=== PATIENT | female | born 1980 | race Two or more races ===

== ENCOUNTER 2025-02-20 08:08 | Outpatient (RCR) | payer MEDICAID, SELFPAY | END 2025-03-15 23:59 | disposition home or self-care (01) | LOC: SCTC 08:08 | PROVIDERS: PCP Nurse Practitioner Family; Referring Provider Nurse Practitioner Family; Visit Provider Nurse Practitioner Family | DX: D75.839 Thrombocytosis, unspecified (principal); Z86.16 Personal history of COVID-19; R53.83 Other fatigue; R19.5 Other fecal abnormalities; Z87.891 Personal history of nicotine dependence | CPT/HCPCS: 99213; G0463 ==

== ENCOUNTER 2025-03-20 09:52 | Outpatient (RCR) | payer MEDICAID, SELFPAY | END 2025-04-14 23:59 | disposition home or self-care (01) | LOC: SCTC 09:52 | PROVIDERS: PCP Nurse Practitioner Family; Referring Provider Nurse Practitioner Family; Visit Provider Nurse Practitioner Family | DX: D75.839 Thrombocytosis, unspecified (principal); R53.83 Other fatigue; R19.5 Other fecal abnormalities; E53.8 Deficiency of other specified B group vitamins; G47.9 Sleep disorder, unspecified; E66.9 Obesity, unspecified; Z68.34 Body mass index [BMI] 34.0-34.9, adult | CPT/HCPCS: 99212; G0463 ==